=== PATIENT | female | born 1970 | race Hispanic/Latino ===

== ENCOUNTER 2019-09-21 06:31 | Day surgery (SDC) | payer OTHER ==
[2019-09-18 16:19] LABS: BASOPHILS % (AUTO) 0.6 % (0.0-5.0); EOSINOPHILS % (AUTO) 1.1 % (0.0-8.0); HEMATOCRIT 42.7 % (36-48); LYMPHOCYTES % (AUTO) 13.1 % (21.0-51.0); MEAN CORPUSCULAR HGB CONC 32.1 g/dL (32.0-36.0); MEAN CORPUSCULAR VOLUME 93.4 fL (79-99); MONOCYTES % (AUTO) 10.3 % (3.0-13.0); NEUTROPHILS % (AUTO) 74.5 % (40.0-77.0); PLATELET COUNT (AUTO) 248 K/uL (130-400); RED BLOOD CELL COUNT(AUTO) 4.57 MIL/uL (4.00-5.50); RED CELL DISTRIBUTION WIDTH 12.9 % (11.0-15.5); WHITE BLOOD COUNT (AUTO) 5.3 K/uL (4.8-10.8)
[2019-09-18 16:22] VITALS: BP 132/61
[~2019-09-21] VITALS: Ht 160 cm; Wt 68.9 kg
[2019-09-21] VITALS (14 sets, daily range): BP systolic 113–135; BP diastolic 59–80
[~2019-09-21 06:31] MED LIST: ACET-66 PO; DOCU-116 PO; METAMUCIL PO
[2019-09-21] MEDS: LACTATED RINGERS 1000ML 1,000 ML IV SCH ×2 (07:12→08:45)
[2019-09-21] MEDS ORDERED: VASOPRESSIN 20 UNITS/ML 1ML VIAL ONE (07:22)
[2019-09-21] MEDS ORDERED: [UNRECOGNIZED DRUG - OTHER] ONE (07:23)
[2019-09-21] MEDS ORDERED: LIDOCAINE PF 2% 5ML ABBOJECT ONE (07:56)
[2019-09-21] MEDS ORDERED: MIDAZOLAM HCL 1 MG/ML 2ML VIAL ONE (07:56)
[2019-09-21] MEDS ORDERED: PROPOFOL 10 MG/ML 20ML VIAL IV ONE (07:56)
[2019-09-21] MEDS ORDERED: ONDANSETRON HCL 4 MG/2 ML VIAL ONE (07:56)
[2019-09-21] MEDS ORDERED: DEXAMETHASONE SOD PHOSPHATE 10MG/ML 1ML VIAL ONE (07:56)
[2019-09-21] MEDS ORDERED: FENTANYL CITRATE PF 50 MCG/1 ML 2ML VIAL ONE (07:57)
[2019-09-21] MEDS ORDERED: MEPERIDINE-PF 25 MG/ML SYG ONE (08:25)
== END 2019-09-21 10:39 | disposition home or self-care (01) ==
LOC: DAH 06:31
PROVIDERS: ATTEND Specialist
DX: N88.8 Other specified noninflammatory disorders of cervix uteri (principal); E66.9 Obesity, unspecified; Z68.26 Body mass index [BMI] 26.0-26.9, adult; Z98.890 Other specified postprocedural states; Z85.048 Personal history of other malignant neoplasm of rectum, rectosigmoid junction, and anus; Z79.899 Other long term (current) drug therapy; Z82.49 Family history of ischemic heart disease and other diseases of the circulatory system
CPT/HCPCS: 36415; 57520; 84703; 85025; A4215; A4221; A4222; A4223; A4351; A4663; A6260; J1100; J2001; J2175; J2250; J2405; J2704; J3010; J3490; J7120 ×2